=== PATIENT | female | born 1980 | race African-American/Black ===

== ENCOUNTER 2017-07-02 14:27 | Emergency (ER) | payer MEDICAID ==
[~2017-07-02] VITALS: Ht 162.6 cm; Wt 54.4 kg
[2017-07-02 14:29] VITALS: BP 115/71
--- NOTE | 2017-07-02 14:39 | Emergency Room Report ---
History of Present Illness General Chief Complaint: Medication Refill Source: EMS Present Illness HPI 37 yo female patient presents to ER BIB ambulance requesting methadone refill. EMT reports that patient was sleeping on lawn of house and police were called. Police unable to get patient up and moving so they called EMT to bring patient to ER. Patient denies drug use. Reports receiving methadone from "[facility]". Patient reports drinking vodka. Patient denies suicidal or homicidal ideation. Denies chest pain, SOB, abdominal pain, fever, injury. Patient is a poor historian. Allergies: Coded Allergies: ERYTHROMYCIN BASE (Verified Allergy, Unknown, 07/02/17) PENICILLINS (Verified Allergy, Unknown, 07/02/17) Patient History Past Medical History: see triage record Last Menstrual Period: n/a Reviewed Nursing Documentation: PMH: Agreed, PSxH: Agreed Nursing Documentation-PMH Past Medical History: No History, Except For History Of Psychiatric Problem: Yes - psychiatric problem. Substance abuse. Hx Neurological Problems: Yes - seizure Review of Systems All Other Systems: negative except mentioned in HPI Physical Exam Vital Signs Date Time Temp Pulse Resp B/P (MAP) Pulse Ox O2 Delivery O2 Flow Rate FiO2 07/02/17 14:22 97.9 109 18 115/71 98 Room Air 97.9 Sp02 EP Interpretation: reviewed, normal General Appearance: well appearing, no apparent distress, alert, GCS 15 Head: normocephalic, atraumatic Eyes: bilateral eye normal inspection, bilateral eye PERRL ENT: hearing grossly normal, normal pharynx, no angioedema, normal voice, uvula midline, moist mucus membranes Neck: full range of motion Respiratory: lungs clear, normal breath sounds, no rhonchi, no respiratory distress, no accessory muscle use, no wheezing, speaking full sentences Cardiovascular #1: regular rate, rhythm, no edema Gastrointestinal: non tender, soft, no mass, non-distended, no guarding, no rebound Genitourinary: no CVA tenderness Musculoskeletal: back normal, digits/nails normal, gait/station normal, normal range of motion, non-tender Neurologic: alert, oriented x3, responsive, motor strength/tone normal, sensory intact Psychiatric: mood/affect normal Skin: no rash Lymphatic: no adenopathy Medical Decision Making PA Attestation Dr. Patton is my supervising Physician whom patient management has been discussed with. Diagnostic Impression: Primary Impression: Encounter for medication refill ER Course Pt. presents to the ED requesting medication refill. Ddx considered but are not limited to drug use, alcohol use, psych disorder. Vital signs: are WNL, pt. is afebrile ORDERS: none required at this time, the diagnosis is clinical ED INTERVENTIONS: None required at this time. ER COURSE: Patient is sleeping, easily arousable. Informed patient not able to provide her with medication refill. States she "knows" she would not get medication but "wanted to ask anyways". Discuss patient with Dr. Patton. PE benign, no bony tenderness, no signs of head trauma, no difficulty breathing , no abdominal TTP, no open wounds, PERRL. Patient resting comfortably, in no acute distress, nontoxic appearing. Patient requesting to be discharged and requesting food. Patient provided with food by nurse. Patient eloped prior to discharge. Last Vital Signs Date Time Temp Pulse Resp B/P (MAP) Pulse Ox O2 Delivery O2 Flow Rate FiO2 07/02/17 14:29 97.9 103 18 115/71 98 Room Air 97.9 Disposition: Paul Schulte Jul 02, 2017 14:39
[2017-07-02 19:45] VITALS: BP 115/71
== END 2017-07-02 19:45 | disposition left against medical advice (07) ==
LOC: EDBD 14:27 → EMR 14:58
DX: Z76.0 Encounter for issue of repeat prescription (principal); F19.10 Other psychoactive substance abuse, uncomplicated; Z88.0 Allergy status to penicillin
CPT/HCPCS: 99283